=== PATIENT | female | born 1990 | race Two or more races ===

== ENCOUNTER 2019-11-30 19:18 | Day surgery (SDC) | payer BC ==
--- NOTE | 2019-11-30 19:49 | EDM.PDOC ---
ED HPI GENERAL MEDICAL PROBLEM - General Stated Complaint: REFER FROM [facility], ACUTE APPENDICITIS Time Seen by Provider: 11/30/19 19:21 - History of Present Illness INITIAL COMMENTS - FREE TEXT/NARRATIVE: Patient is a 29-year-old female who was evaluated at [place] emergency department by Dr. Green for abdominal pain. She was found to have uncomplicated acute appendicitis as well as an indeterminate hepatic lesion which requires a follow-up MRI on a nonemergent basis her labs were notable for a normal white blood cell count at 6.1 and normal differential and unremarkable CMP but a CRP that was elevated to 20 she had a negative COVID test with a set for admission. Report was mistakenly called to my not. However the patient's paperwork does direct the patient to proceed here. Patient has been n.p.o. her vital signs were stable in [place] she was afebrile and she was given 3.375 mg of IV Zosyn as well as 4 mg of Zofran prior to her transfer via private auto. The patient states that she had a little bit of pain 5 days ago but then it went away the day after. However the day before yesterday she developed 10 out of 10 right lower quadrant abdominal pain associated with some nausea and vomiting that day but no nausea vomiting since then. Bumps in the road on the drive here minimally worsened her pain. She denies fevers or chills she denies prior abdominal surgeries. She does take iron supplements as well as Zyrtec. She has been n.p.o. since 2 AM. abdominal Pain Score (Numeric/FACES): 2 - Related Data Allergies Allergy/AdvReac Type Severity Reaction Status Date / Time ibuprofen Allergy Other Verified 11/30/19 19:54 latex Allergy Other Verified 11/30/19 19:54 Home Meds: Home Meds . [No Known Home Meds] 11/30/19 [History] ED ROS GENERAL - Review of Systems Review Of Systems: See Below Free Text/Narrative/Comment: General: No fever Respiratory: No SOB Cardiac: No chest pain Gastrointestinal: Per HPI ED EXAM, GENERAL - Physical Exam Exam: See Below Free Text/Narrative:: General Appearance: No acute distress, appears comfortable HEENT: Normocephalic/atraumatic, sclera anicteric, mucous membranes moist Abdomen: Right lower quadrant tenderness without guarding or rebound, remainder of abdomen soft and nontender Back: Normal Neurologic: Awake, alert, no obvious deficits, moving all extremities Psychiatric: Appropriate, cooperative Course - Vital Signs Last Recorded V/S: Last Vital Signs Temp 96.7 F L 11/30/19 19:50 Pulse 70 11/30/19 19:50 Resp 16 11/30/19 19:50 BP 117/75 11/30/19 19:50 Pulse Ox 98 11/30/19 19:50 - Orders/Labs/Meds Orders: Active Orders 24 hr Category Date Time Status Patient Status [ADT] Routine ADT 11/30/19 20:08 Ordered Lactated Ringers [Ringers, Lactated] 1,000 ml Med 11/30/19 19:58 Active IV .BOLUS Medication Orders Lactated Ringer's (Ringers, Lactated) 1,000 mls @ 999 mls/hr IV .BOLUS ONE Stop: 11/30/19 20:58 Meds: Medications Generic Name Dose Route Start Last Admin Trade Name Freq PRN Reason Stop Dose Admin Lactated Ringer's 1,000 mls @ 999 mls/hr 11/30/19 19:58 Ringers, Lactated IV 11/30/19 20:58 .BOLUS ONE Departure - Departure Time of Disposition: 20:09 Disposition: Refer to Observation Condition: Good Clinical Impression: Acute appendicitis - Discharge Information Referrals: Kriss Aviles MD [Primary Care Provider] - Sepsis Event Note (ED) - Focused Exam Vital Signs: Vital Signs Temp Pulse Resp BP Pulse Ox 11/30/19 19:50 96.7 F L 70 16 117/75 98 - My Orders Last 24 Hours: My Active Orders 11/30/19 19:58 Lactated Ringers [Ringers, Lactated] 1,000 ml IV .BOLUS 11/30/19 20:08 Patient Status [ADT] Routine - Assessment/Plan Last 24 Hours: My Active Orders 11/30/19 19:58 Lactated Ringers [Ringers, Lactated] 1,000 ml IV .BOLUS 11/30/19 20:08 Patient Status [ADT] Routine Assessment:: 29-year-old female presenting with uncomplicated acute appendicitis. Images have been pushed by the sending facility and general surgery has been paged. LR ordered given her NPO status and duration. Pt without clinical or laboratory signs of sepsis. Pt discussed with Dr. Gonzalez. He will come evaluate the patient, con't Zosyn, pain meds PRN, NPO etc.
[2019-11-30] MEDS ORDERED: Lactated Ringers 1,000 ML IV ONE (19:58)
[2019-11-30] MEDS ORDERED: cefOXitin 2 GM in Premix Bag 1 BAG IV ONE (21:22)
[2019-11-30] MEDS ORDERED: Bupivacaine 25%/EPINEPHrine/PF 30 ML ONE (21:48)
[2019-11-30] MEDS ORDERED: Octyl 2-Cyanoacrylate 1 Tube ONE (21:49)
--- NOTE | 2019-11-30 21:53 | PCM.PREANE ---
Preanesthetic Assessment - Anesthesia/Transfusion/Family Hx Anesthesia History: No Prior Anesthesia Family History of Anesthesia Reaction: No Transfusion History: No Prior Transfusion(s) - Review of Systems General: No Symptoms Pulmonary: No Symptoms Cardiovascular: No Symptoms Gastrointestinal: Abdominal Pain, Nausea Neurological: No Symptoms - Physical Assessment NPO Status Date: 11/30/19 NPO Status Time: 15:00 (contrast) Vital Signs: Last Vital Signs Temp 35.9 C L 11/30/19 19:50 Pulse 70 11/30/19 19:50 Resp 16 11/30/19 19:50 BP 117/75 11/30/19 19:50 Pulse Ox 98 11/30/19 19:50 Height: 5 ft 2 in Weight: 56.245 kg ASA Class: 2E Mental Status: Alert & Oriented x3 Airway Class: Mallampati = 1 Dentition: Reports: Normal Dentition Thyro-Mental Finger Breadths: 3 ROM/Head Extension: Full Lungs: Clear to Auscultation, Normal Respiratory Effort Cardiovascular: Regular Rate, Regular Rhythm - Allergies Allergies/Adverse Reactions: Allergies Allergy/AdvReac Type Severity Reaction Status Date / Time ibuprofen Allergy Other Verified 11/30/19 19:54 latex Allergy Other Verified 11/30/19 19:54 - Acknowledgements Anesthesia Type Planned: General Anesthesia Pt an Appropriate Candidate for the Planned Anesthesia: Yes Alternatives and Risks of Anesthesia Discussed w Pt/Guardian: Yes Pt/Guardian Understands and Agrees with Anesthesia Plan: Yes PreAnesthesia Questionnaire Respiratory History: Reports: Asthma Hematologic History: Reports: Anemia, Iron Deficiency - SUBSTANCE USE Smoking Status *Q: Never Smoker Recreational Drug Use History: No - HOME MEDS Home Medications: Home Meds . [No Known Home Meds] 11/30/19 [History] - CURRENT (IN HOUSE) MEDS Current Meds: Current Medications Cefoxitin Sodium 2 gm/ Premix 50 mls @ 100 mls/hr IV ONETIME ONE Stop: 11/30/19 21:51 Discontinued Medications Lactated Ringer's (Ringers, Lactated) 1,000 mls @ 999 mls/hr IV .BOLUS ONE Stop: 11/30/19 20:58 Last Admin: 11/30/19 20:29 Dose: 999 mls/hr Documented by: Bupivacaine HCl/Epinephrine Bitart (Sensorc Mpf 0.25%-Epi [id number]) Confirm Administered Dose 30 mls @ as directed .ROUTE .STK-MED ONE Stop: 11/30/19 21:49
[2019-11-30] MEDS ORDERED: Propofol 200 MG/20 ML SDV ONE (21:57)
[2019-11-30] MEDS ORDERED: fentaNYL 100 MCG/2 ML SDV ONE ×2 (21:57→23:25)
[2019-11-30] MEDS ORDERED: Midazolam 1 MG/ML 2 ML SDV ONE (21:57)
[2019-11-30] MEDS ORDERED: Rocuronium Bromide 50 MG/5 ML Syringe ONE (21:58)
[2019-11-30] MEDS ORDERED: Lidocaine 2% 5 ML SDV ONE (21:58)
[2019-11-30] MEDS ORDERED: Ondansetron 4 MG/2 ML SDV ONE (23:04)
[2019-11-30] MEDS ORDERED: Dexamethasone 4 MG/ML 5 ML MDV ONE (23:04)
--- NOTE | 2019-11-30 23:12 | HP ---
DATE OF : 1990 PRIMARY CARE PHYSICIAN: Kriss Aviles MD HISTORY OF PRESENT ILLNESS: The patient is a pleasant 29-year-old female who said starting last Wednesday she was having some right lower abdominal pain. This pain has slowly been getting worse over the past week. Last Wednesday, she was having just all over abdominal pain with some nausea and vomiting and some loose stools. She says she took some herbal tea and supplements that seem to make it better. However, since the pain was still there today, she decided to go to the ER in [place]. She was examined there and a CT scan was done that showed an uncomplicated acute appendicitis. She was transferred to [place] for surgery. She was given Zosyn at outside ER. Currently, the patient feels okay. Her pain is tolerable, but she still has pain in the right lower quadrant. She denies any nausea or vomiting since last Wednesday. She denies any fevers or chills. PAST MEDICAL HISTORY: Significant for: 1. Unspecific iron deficiency. 2. Mild asthma. CURRENT MEDICATIONS: She takes: 1. Iron supplement. 2. Zyrtec daily. ALLERGIES: 1. Ibuprofen causes hives. 2. Tetanus serum. FAMILY HISTORY: She denies any family history: 1. Maternal cousin with breast cancer. 2. Maternal grandmother with leukemia and diabetes. 3. Maternal grandfather with stroke. 4. Paternal grandmother with AK and diabetes. SOCIAL HISTORY: The patient denies tobacco use, illicit drug use, or alcohol use. REVIEW OF SYSTEMS: A complete 12+ review of systems was done and was negative except for what is in the HPI. PHYSICAL EXAMINATION: GENERAL: The patient is lying comfortably in the hospital bed. She is alert and oriented. No acute distress. VITAL SIGNS: Temperature is 96.7, pulse 70, blood pressure is 117/75, and saturating 98% on room air. HEENT: Head is normocephalic and atraumatic. Mouth, wearing mask. LUNGS: Clear to auscultation bilaterally. No rhonchi or wheezing heard. HEART: Regular rhythm. No murmur appreciated. ABDOMEN: Soft and nondistended. She is tender in the right lower quadrant at McBurney's point. No rebound or guarding though. EXTREMITIES: No edema. NEUROLOGIC: Grossly, no motor or neurologic deficit noted. LABORATORY DATA: From [place] showed white cell count of 6.1, hemoglobin of 13.6, and platelet count is 301. Glucose is 104, sodium 139, potassium 3.7, chloride 105, bicarb is 26, BUN 9, creatinine is 0.79, calcium is 8.6, and total bilirubin is 0.4. COVID was negative along with urine was negative. IMAGING: I do have the report and went through the imaging myself. She does have appendix which was dilated and inflamed. She also has an incidental finding of most likely a hemangioma in the left hepatic lobe. ASSESSMENT AND PLAN: This is a pleasant 29-year-old female with acute appendicitis. I did go over with the risks, goals, and alternatives to surgery. Risks include, but are not limited to, bleeding, infection, abscess formation, failure of the staple line, need to convert to open, hernia formation, scar formation, and this could be something other than appendicitis. The patient understands. Also went over use of antibiotics alone. The patient wished to proceed with surgery. We will call the OR crew in. The patient wish to be full code for the procedure. All the patient's questions were answered. She has already received antibiotics. PING / BENITO /[id number] MTDJosé Antonio
[2019-11-30] MEDS ORDERED: Glycopyrrolate 0.2 MG/ML SDV ONE (23:24)
[2019-11-30] MEDS ORDERED: Ondansetron 4 MG/2 ML SDV IVPUSH PRN (23:38)
[2019-11-30] MEDS ORDERED: Acetaminophen/HYDROcodone 325-5 MG Tab PO PRN (23:38)
--- NOTE | 2019-11-30 23:38 | PCM.OPNOTE ---
- General Post-Op/Procedure Note Date of Surgery/Procedure: 11/30/19 Operative Procedure(s): Laparoscopic appendectomy Findings: appendicitis. dictation number [id number] Pre Op Diagnosis: acute appendicitis Post-Op Diagnosis: acute appendicitis Anesthesia Technique: General ET Tube Primary Surgeon: Jarret Gonzalez Pathology: appendix EBL in mLs: 5 Complications: None Condition: Good
[2019-11-30] MEDS ORDERED: Lactated Ringers 1,000 ML IV SCH (23:45)
[2019-11-30] MEDS ORDERED: HYDROmorphone 1 MG/ML Syringe IVPUSH PRN (23:54)
[2019-12-01] MEDS ORDERED: cefOXitin 2 GM in Premix Bag 1 BAG IV SCH ×2
[2019-12-01] MEDS ORDERED: fentaNYL 100 MCG/2 ML SDV IVPUSH PRN (00:01)
[2019-12-01] MEDS ORDERED: 50% Dextrose in Water 50 ML Syringe IVPUSH PRN (00:01)
[2019-12-01] MEDS ORDERED: Albuterol 0.083% 2.5 MG/3 ML Neb Soln NEB PRN (00:01)
[2019-12-01] MEDS ORDERED: EPINEPHrine 1:10,000 1 MG/10 ML Syringe IVPUSH PRN (00:01)
[2019-12-01] MEDS ORDERED: Naloxone 0.4 MG/ML Syringe IVPUSH PRN (00:01)
[2019-12-01] MEDS ORDERED: Atropine 0.1 MG/ML 10 ML Syringe IVPUSH PRN ×2 (00:01)
--- NOTE | 2019-12-01 00:23 | PCM.POSTAN ---
POST ANESTHESIA ASSESSMENT - MENTAL STATUS Mental Status: Alert - VITAL SIGNS Vital Signs: Last Vital Signs Temp 35.9 C L 11/30/19 19:50 Pulse 70 11/30/19 19:50 Resp 16 11/30/19 19:50 BP 117/75 11/30/19 19:50 Pulse Ox 98 11/30/19 19:50 - RESPIRATORY Respiratory Status: Respiratory Rate WNL, Airway Patent, O2 Saturation Stable - CARDIOVASCULAR CV Status: Pulse Rate WNL, Blood Pressure Stable - GASTROINTESTINAL GI Status: No Symptoms - PAIN Pain Score: 0 - POST OP HYDRATION Hydration Status: Adequate & Stable
--- NOTE | 2019-12-01 05:33 | OR ---
SURGEON: ZA FUNK MD DATE OF PROCEDURE: 11/30/2019 PREOPERATIVE DIAGNOSIS: Acute appendicitis. POSTOPERATIVE DIAGNOSIS: Acute appendicitis. PROCEDURE PERFORMED: Laparoscopic appendectomy. FINDINGS: Inflamed appendix. PRIMARY SURGEON: Za Funk MD ANESTHESIA: General. ESTIMATED BLOOD LOSS: 5 mL. COMPLICATIONS: None. REASON FOR PROCEDURE: The patient is a pleasant 29-year-old female who had abdominal pain actually for about almost a week, mainly right lower quadrant pain. She did have some nausea and vomiting. She apparently came into the ER at [place]. Had a CT scan, which showed inflamed appendix. She was transferred to [facility] for definitive care. I did go over with the patient risks, goals, and alternatives to the procedure. Risks include, but not limited to, bleeding, infection, abscess formation, failure of staple line, need to convert to open, this could be something other than appendicitis. The patient understands. The patient wishes to proceed. PROCEDURE IN DETAIL: The patient was brought to the OR. She was prepped and draped in usual sterile fashion. SCDs were placed. Low catheter was placed. Preoperative antibiotics were given. After a time-out was performed, an infraumbilical incision was made. Hernandez was used to grasp the base of the umbilical stalk and slightly elevated and a Veress needle was placed. Position was confirmed with pulling back on a syringe. No succus or blood came back and had a positive drop test. Now insufflation began after pneumoperitoneum was established. Now a 5-mm camera was placed, another 5- mm trocar into the abdominal cavity under direct visualization. Abdomen was then inspected. Now, another 5-mm trocar was placed in the suprapubic area and 12-mm in the left lower abdomen. The patient was placed in the head down position, airplaned towards myself. The appendix was dilated, but did not look to have any gross perforation. A small window was made in the mesoappendix at the base of the appendix. Now the mesoappendix was taken with a Harmonic scalpel. There was good hemostasis. Now the appendix was removed using blue load linear stapler. The appendix was removed into the Endo Catch bag. Now the abdominal cavity was then inspected. The operative site was then inspected. Staple line appeared intact. Good hemostasis. Some minimal suction and irrigation were done to operative site. The rest of the abdomen was inspected to look up at her liver since she liver. Now the ports were removed under direct visualization. Pneumoperitoneum was released. The fascial defect of 12 mm was closed with 0 Vicryl and all the port sites were then injected with local and closed with 4-0 Monocryl and Dermabond. The patient was transferred to recovery room in stable condition. PING / BENITO /[id number]
--- NOTE | 2019-12-01 07:36 | PCM48HPAN ---
Post Anesthesia Note - EVALUATION WITHIN 48HRS OF ANESTHETIC Vital Signs in Normal Range: Yes Patient Participated in Evaluation: Yes Respiratory Function Stable: Yes Airway Patent: Yes Cardiovascular Function Stable: Yes Hydration Status Stable: Yes Pain Control Satisfactory: Yes Nausea and Vomiting Control Satisfactory: Yes Mental Status Recovered: Yes Vital Signs: Last Vital Signs Temp 36.1 C 12/01/19 03:44 Pulse 89 12/01/19 03:44 Resp 15 12/01/19 03:44 BP 112/71 12/01/19 03:44 Pulse Ox 96 12/01/19 03:44
[2019-12-01] MEDS ORDERED: Cetirizine 10 MG Tab PO SCH (09:00)
--- NOTE | 2019-12-01 09:12 | PN ---
SUBJECTIVE: The patient says she is doing well. She says she feels much better than yesterday after her laparoscopic appendectomy. The patient denies any nausea and vomiting. She has not been using any of her pain meds she says. The nurse confirms. She is complaining of a bit of right shoulder pain and some postnasal drip. OBJECTIVE: GENERAL: The patient lying comfortably in hospital bed. She is alert, oriented. No acute distress. VITAL SIGNS: Temperature is 97, pulse is 89, blood pressure is 112/71, saturating 96% on room air. ABDOMEN: Soft and nondistended. She has some incisional tenderness. Incisions are clean, dry, intact. Dermabond in place. No signs of infection. ASSESSMENT AND PLAN: This is a pleasant 29-year-old female status post laparoscopic appendectomy for nonperforated appendix. She is doing well. She will advance her diet. She will go home later today. I did go over the surgery with the patient. I answered her questions. Did go over I would like to see her in 2 weeks for followup, to go over the pathology. She did go to her PCP to follow up for her lesion seen on her liver. Did go over discharge instructions with the patient. PING OLIVER /[id number]
--- NOTE | 2019-12-04 18:20 | DISCH ---
DATE OF DISCHARGE: 12/01/2019 PRIMARY CARE PHYSICIAN: Kriss Aviles MD PRIMARY DISCHARGE DIAGNOSIS: Acute appendicitis. POSTOPERATIVE DIAGNOSES: 1. Seasonal allergies. 2. Unspecified anemia. 3. Lesion on left lobe of liver. PROCEDURE: Laparoscopic appendectomy on 11/30/2019. REASON FOR ADMISSION: The patient is a pleasant 29-year-old female who has had right lower abdominal pain for almost a week. She did go into her local ER in [facility] and had a CT scan, which showed likely appendicitis. She was transferred to [place] for a laparoscopic appendectomy. The patient did go to the OR and underwent a laparoscopic appendectomy. She did well. Her appendix did not appear perforated. The patient was admitted for postoperative observation. HOSPITAL COURSE: The patient tolerated the procedure well. The following morning, the patient said her pain was well controlled. She felt much better. She had no complaints other than a little bit of right shoulder pain and some postnasal drip from her seasonal allergies. The patient felt ready to go home. DISCHARGE MEDICATIONS: 1. Zyrtec 10 mg p.o. daily. 2. [place] 5/325 one tablet q.6 hours p.r.n. for acute pain after surgery. 3. Iron supplement. DISCHARGE INSTRUCTIONS: The patient should avoid any heavy lifting or strenuous activities for the next 2 weeks. She should follow up with myself in 2 weeks for postoperative checkup. The patient should follow up with her PCP for further investigation of the incidentally found lesion on her left lobe of liver. The patient may shower. I did go over with the patient that she is to call if she has any fevers, chills, nausea, vomiting, or has any drainage or erythema around the would sites. The patient understands. The patient will be discharged this day. PING OLIVER /[id number]
== END 2019-12-01 10:30 | disposition home or self-care (01) ==
LOC: MW.ED 19:18 → MW.SDS 20:08 → MW.MS 22:34 → MW.SDS 12-01 10:30
PROVIDERS: ATTEND Surgery
DX: K35.80 Unspecified acute appendicitis (principal); J45.909 Unspecified asthma, uncomplicated; K76.9 Liver disease, unspecified; D50.9 Iron deficiency anemia, unspecified; Z88.6 Allergy status to analgesic agent; Z91.040 Latex allergy status; Z88.7 Allergy status to serum and vaccine
CPT/HCPCS: 44970; 88304; 99284; A9270; J0694; J1100; J2001; J2250; J2405; J2704; J3010; J3490; J7120